=== PATIENT | female | born 1980 | race Caucasian/White ===

== ENCOUNTER → 2020-06-15 | Outpatient (CLI) | payer OTHER | LOC: LAB 11:05 | PROVIDERS: ATTEND Internal Medicine Gastroenterology | DX: Z01.812 Encounter for preprocedural laboratory examination (principal); K62.5 Hemorrhage of anus and rectum; Z20.828 Contact with and (suspected) exposure to other viral communicable diseases | CPT/HCPCS: U0003 ==

== ENCOUNTER → 2020-06-18 | Day surgery (SDC) | payer OTHER ==
[~2020-06-18] MED LIST: IV RINGERS,LACTATED 1000ML 1,000 ML IV SCH; LIDOCAINE 2% PF 5 ML VIAL. ONE; PROPOFOL 10 MG/ML (20ML) VIAL. IV ONE
[2020-06-18 11:08] VITALS: BP 117/61
--- NOTE | 2020-06-23 15:00 | PATHOLOGY ---
[facility] Accession Number: [id number] . 01 Material submitted: . PART A: ileum - TERMINAL ILEUM BIOPSY PART B: colon - RIGHT COLON BIOPSY. Modifiers: right PART C: colon - LEFT COLON BIOPSY. Modifiers: left . 01 Clinical history: . RECTAL BLEED . 02 Diagnosis: A. Small intestine mucosa, terminal ileum biopsies: - No significant pathologic abnormalities. . B. Colonic mucosa, right colon biopsies: - No significant pathologic abnormalities. . C. Colonc mucosa, left colon biopsies: - No significant pathologic abnormalities. . (JPM:delma; 06/23/2020) [facility] 06/23/2020 0945 Local . 02 Comment: Sections of the terminal ileum biopsy reveal several segments of small intestine mucosa. Where best oriented, the mucosal villi show no sprue-like changes or significant inflammatory changes. There are a few mucosal-associated lymphoid aggregates. . Sections of the right colon and left colon biopsies appear similar and reveal multiple segments of colonic mucosa containing a several mucosal-associated lymphoid aggregates. There is no evidence of a chronic destructive colitis, lymphocytic colitis, or collagenous colitis. (JPM:delma; 06/23/2020) . 02 Electronically signed: . Dangelo Moreno MD, Pathologist NPI- [id number] . 01 Gross description: . A. The specimen is received in formalin, labeled "Raissa Dariana, terminal ileum biopsy". Received are three segments of pale vargas soft tissue ranging in size from 0.2 to 0.4 cm in maximum dimensions. The specimen is submitted entirely in cassette A1. . B. The specimen is received in formalin, labeled "Raissa Dariana, right colon biopsy". Received are four segments of pale vargas soft tissue ranging in size from 0.4 to 0.6 cm in maximum dimensions. The specimen is submitted entirely in cassette B1. . C. The specimen is received in formalin, labeled "Raissa Westbrook, left colon biopsy". Received are four segments of pale vargas soft tissue ranging in size from 0.3 to 0.5 cm in maximum dimensions. The specimen is submitted entirely in cassette C1. (CAA; 06/22/2020) QA/QA 06/22/2020 1209 Local . 02 Pathologist provided ICD-10: K62.5 . 02 CPT . 108721, 391803, [id number] Specimen Comment: A courtesy copy of this report has been sent to [phone], [phone] Specimen Comment: [id number] Specimen Comment: Report sent to / DR TOMLINSON Performed at: 01 [facility] [address] [facility] [address], [place] [id number] MD Zana Mackey MD Phone: [phone] Performed at: 02 [facility] [address] [place], [place] [id number] MD Dangelo Moreno MD Phone: [phone]
== END | disposition home or self-care (01) ==
LOC: ENDOS 09:34 → EDUNIT# 11:30
PROVIDERS: ATTEND Internal Medicine Gastroenterology
DX: K62.5 Hemorrhage of anus and rectum (principal); K64.0 First degree hemorrhoids; K63.89 Other specified diseases of intestine; G47.30 Sleep apnea, unspecified; E66.9 Obesity, unspecified; Z88.0 Allergy status to penicillin; Z72.89 Other problems related to lifestyle; Z83.71 Family history of colonic polyps; Z98.890 Other specified postprocedural states
CPT/HCPCS: 45380; 81025; J2704; 88305